=== PATIENT | male | born 1940 | race Caucasian/White ===

== ENCOUNTER 2020-01-22 15:02 | Observation (INO) ==
[2020-01-22] MEDS ORDERED: DOCUSATE SODIUM 100 MG CAPSULE PO PRN (15:08)
[2020-01-22] MEDS ORDERED: ALBUTEROL/IPRATROPIUM 3 ML NEB RESP TX PRN (15:08)
[2020-01-22] MEDS ORDERED: POTASSIUM CHLORIDE 20 MEQ TABLET PO PRN (15:08)
[2020-01-22] MEDS ORDERED: PROMETHAZINE 25 MG TABLET PO PRN (15:08)
[2020-01-22] MEDS ORDERED: guaiFENesin/DM ER 600-30 MG TABLET PO PRN (15:08)
[2020-01-22] MEDS ORDERED: NICOTINE 21 MG/24 HR PATCH TRANSDERM PRN (15:08)
[2020-01-22] MEDS ORDERED: traZODone 50 MG TABLET PO PRN (15:08)
[2020-01-22] MEDS ORDERED: hydrALAZINE 20 MG/1 ML VIAL IV PRN (15:08)
[2020-01-22] MEDS ORDERED: SIMETHICONE CHEW 125 MG TABLET PO PRN (15:08)
[2020-01-22] MEDS ORDERED: MAGNESIUM SULF RIDER 4 GM in PREMIX 1 EACH IV PRN (15:08)
[2020-01-22] MEDS ORDERED: diphenhydrAMINE CAP 25 MG CAPSULE PO PRN (15:08)
[2020-01-22] MEDS ORDERED: BISACODYL 5 MG TABLET PO PRN (15:08)
[2020-01-22] MEDS ORDERED: ALUMINUM/MAGNES/SIMETH MAX STR 30 ML UDCUP PO PRN (15:08)
[2020-01-22] MEDS ORDERED: ACETAMINOPHEN 325 MG TABLET PO PRN (15:08)
[2020-01-22] MEDS ORDERED: ONDANSETRON 4 MG/2 ML VIAL IV PRN (15:08)
[2020-01-22] MEDS ORDERED: MAGNESIUM SULF RIDER 2 GM in PREMIX 1 EACH IV PRN (15:08)
[2020-01-22 15:56] LABS: Basophils % 0.2 % (0.0-0.8); Eosinophils % 0.3 % (0.00-10.9); Hematocrit 48.1 VOL% (42.0-52.0); Immature Granulocytes % 0.4 %; Immature Granulocytes Absolute 0.05 #; Lymphocytes # 1.9 10*3/uL (1.4-4.0); Lymphocytes % 15.6 % (21.2-54.2); Mean Corpuscular HGB Conc 31.2 GM/DL (32-36); Mean Corpuscular Volume 90.1 FL (87-102); Mean Platelet Volume 9.2 FL (9.6-12.0); Monocytes % 8.2 % (1.7-12.7); Neutrophils % 75.3 % (38.7-73.9); Platelet Count 212 T/CUMM (130-400); Red Blood Count 5.34 MC/CUMM (3.8-5.5); Red Cell Distribution Width 13.5 % (9.3-17.3); White Blood Count 12.3 T/CUMM (4-12)
[2020-01-22] MEDS: SODIUM CHLORIDE 0.9% 1,000 ML IV SCH (16:00)
[2020-01-22] MEDS: ENOXAPARIN 80 MG/0.8 ML SYRINGE SUBCUT SCH (16:02)
[2020-01-22] MEDS: dilTIAZem Drip 125 MG/125 ML PREMIX IV SCH (16:02)
[2020-01-22 16:20] LABS: Albumin 3.3 G/DL (3.4-5.0); Bilirubin,Total 0.8 MG/DL (0.2-1.0); Calcium 9.3 MG/DL (8.5-10.1); Osmolality,Calculated 275.7 MOS/KG (273-304); Risk Ratio 3.29; Total Protein 6.6 G/DL (6.4-8.3)
[2020-01-22 19:10] LABS: Apearance,Urine CLEAR (Clear); Bilirubin,Urine Negative (Negative); Blood, Urine Negative (Negative); Glucose,Urine (UA) Negative (Negative); Ketones,Urine Negative (Negative); Mucus,Urine Occasional /LPF (Occasional); Nitrite,Urine Negative (Negative); Protein,Urine Negative; RBC,Urine 2 /HPF (0-4); Urine Color Yellow (Yellow); Urine Specific Gravity 1.012 (1.001-1.035); Urine Urobilinogen < 2.0 EU/DL (0.2-1.0); WBC,Urine 1 /HPF (0-6)
[2020-01-22] MEDS ORDERED: ATORVASTATIN 40 MG TABLET PO SCH (21:00)
[2020-01-22] MEDS: GABAPENTIN 300 MG CAPSULE PO SCH (21:21)
[2020-01-22] MEDS: ZALEPLON 5 MG CAPSULE PO PRN ×2 (21:25→22:25)
[2020-01-23] MEDS: ENOXAPARIN 80 MG/0.8 ML SYRINGE SUBCUT SCH (05:16)
[2020-01-23] MEDS: dilTIAZem Drip 125 MG/125 ML PREMIX IV SCH (05:18)
[2020-01-23] MEDS: SODIUM CHLORIDE 0.9% 1,000 ML IV SCH (05:19)
[2020-01-23 05:35] LABS: Basophils # 0.1 10*3/uL (0.0-0.2); Basophils % 0.3 % (0.0-0.8); Eosinophils # 0.1 10*3/uL (0.0-0.87); Eosinophils % 0.3 % (0.00-10.9); Hematocrit 44.6 VOL% (42.0-52.0); Hemoglobin 14.3 GM/DL (14.0-18.0); Immature Granulocytes % 0.5 %; Immature Granulocytes Absolute 0.07 #; Lymphocytes # 1.9 10*3/uL (1.4-4.0); Lymphocytes % 13.3 % (21.2-54.2); Mean Corpuscular HGB Conc 32.1 GM/DL (32-36); Mean Corpuscular Volume 88.7 FL (87-102); Mean Platelet Volume 9.6 FL (9.6-12.0); Monocytes % 9.4 % (1.7-12.7); Neutrophils % 76.2 % (38.7-73.9); Platelet Count 224 T/CUMM (130-400); Red Blood Count 5.03 MC/CUMM (3.8-5.5); Red Cell Distribution Width 13.6 % (9.3-17.3); White Blood Count 14.6 T/CUMM (4-12)
[2020-01-23 06:20] LABS: Blood Urea Nitrogen 10 MG/DL (7-18); Calcium 8.8 MG/DL (8.5-10.1); Estimated Glom Filtration Rate 99 ML/MIN; Glucose 103 MG/DL (74-106); Osmolality,Calculated 273.7 MOS/KG (273-304); Troponin I < 0.015 NG/ML (0.00-0.045)
[2020-01-23] MEDS: GABAPENTIN 300 MG CAPSULE PO SCH (08:53)
[2020-01-23] MEDS ORDERED: ASPIRIN EC 81 MG TABLET PO SCH (09:00)
[2020-01-23] MEDS ORDERED: FENOFIBRATE 145 MG TABLET PO SCH (09:00)
[2020-01-23] MEDS ORDERED: PANTOPRAZOLE 40 MG TABLET PO SCH (09:00)
[2020-01-23] MEDS ORDERED: METOPROLOL TARTRATE 25 MG TABLET PO SCH (09:06)
[2020-01-23] MEDS ORDERED: APIXABAN 5 MG TABLET PO SCH (09:12)
[2020-01-23] MEDS ORDERED: LEVOFLOXACIN 500 MG TABLET PO SCH (09:30)
[2020-01-23 12:10] VITALS: BP 131/79
== END 2020-01-23 12:45 | disposition left against medical advice (07) ==
LOC: N.TELES → PREINTOOBSV 15:27
PROVIDERS: ADMIT Internal Medicine Cardiovascular Disease; ATTEND Internal Medicine Cardiovascular Disease

== ENCOUNTER 2020-02-25 07:02 | Observation (INO) ==
[~2020-02-25 07:02] MED LIST: ASPIRIN 325 MG TABLET PO ONE; DIAZEPAM 5 MG TABLET PO ONE; MAGNESIUM SULF RIDER 2 GM in PREMIX 1 EACH IV PRN; POTASSIUM CHLORIDE RIDER 10 MEQ in PREMIX 1 EACH IV PRN; SODIUM CHLORIDE 0.9% 1,000 ML IV SCH; diphenhydrAMINE CAP 25 MG CAPSULE PO ONE
[2020-02-25] MEDS ORDERED: DIAZEPAM 5 MG TABLET ONE (07:47)
[2020-02-25] MEDS ORDERED: diphenhydrAMINE CAP 25 MG CAPSULE ONE (07:47)
[2020-02-25] MEDS ORDERED: ASPIRIN 325 MG TABLET ONE (07:47)
[2020-02-25] MEDS ORDERED: HEPARIN/NACL 0.9% 2 UNITS/ML 1,000 ML IV ONE (09:54)
[2020-02-25] MEDS ORDERED: LIDOCAINE 1% 20 ML VIAL ONE (09:54)
[2020-02-25] MEDS ORDERED: HEPARIN/NACL 0.9% 2 UNITS/ML 500 ML IV ONE (09:55)
[2020-02-25] MEDS ORDERED: fentaNYL 100 MCG/2 ML VIAL ONE (09:56)
[2020-02-25] MEDS ORDERED: VERAPAMIL 5 MG/2 ML VIAL ONE (09:56)
[2020-02-25] MEDS ORDERED: MIDAZOLAM 2 MG/2 ML VIAL ONE (10:02)
[2020-02-25] MEDS ORDERED: METOPROLOL TARTRATE 5 MG/5 ML VIAL IV ONE ×3 (10:24→11:28)
[2020-02-25] MEDS ORDERED: dilTIAZem Drip 125 MG/125 ML PREMIX IV SCH (12:30)
[2020-02-25] MEDS ORDERED: MAGNESIUM SULF RIDER 4 GM in PREMIX 1 EACH IV PRN (12:33)
[2020-02-25] MEDS ORDERED: MAGNESIUM SULF RIDER 2 GM in PREMIX 1 EACH IV PRN (12:33)
[2020-02-25] MEDS ORDERED: ZALEPLON 5 MG CAPSULE PO PRN (12:34)
[2020-02-25] MEDS ORDERED: CALCIUM CARBONATE CHEW 500 MG TABLET PO PRN (12:34)
[2020-02-25] MEDS ORDERED: ACETAMINOPHEN 325 MG TABLET PO PRN (12:34)
[2020-02-25] MEDS ORDERED: MORPHINE 4 MG/1 ML VIAL IV PRN (12:34)
[2020-02-25] MEDS ORDERED: ONDANSETRON 4 MG/2 ML VIAL IV PRN (12:34)
[2020-02-25] MEDS ORDERED: LACTULOSE 20 GM/30 ML UDCUP PO PRN (12:34)
[2020-02-25] MEDS ORDERED: hydrALAZINE 20 MG/1 ML VIAL IV PRN (12:34)
[2020-02-25] MEDS ORDERED: SIMETHICONE CHEW 125 MG TABLET PO PRN (12:34)
[2020-02-25] MEDS ORDERED: BISACODYL 5 MG TABLET PO PRN (12:34)
[2020-02-25] MEDS ORDERED: ALUMINUM/MAGNES/SIMETH MAX STR 30 ML UDCUP PO PRN (12:34)
[2020-02-25] MEDS ORDERED: POTASSIUM CHLORIDE 20 MEQ TABLET PO PRN (12:34)
[2020-02-25] MEDS: ENOXAPARIN 80 MG/0.8 ML SYRINGE SUBCUT SCH (13:20)
[2020-02-25 13:36] LABS: Troponin I 0.095 NG/ML (0.00-0.045)
[2020-02-25 16:53] LABS: Troponin I 0.105 NG/ML (0.00-0.045)
[2020-02-26] MEDS: ENOXAPARIN 80 MG/0.8 ML SYRINGE SUBCUT SCH ×2 (01:04→12:01)
[2020-02-26 04:55] LABS: Basophils % 0.2 % (0.0-0.8); Eosinophils # 0.1 10*3/uL (0.0-0.87); Eosinophils % 0.3 % (0.00-10.9); Hematocrit 49.7 VOL% (42.0-52.0); Hemoglobin 15.6 GM/DL (14.0-18.0); Immature Granulocytes % 0.5 %; Immature Granulocytes Absolute 0.08 #; Lymphocytes # 3.3 10*3/uL (1.4-4.0); Lymphocytes % 19.8 % (21.2-54.2); Mean Corpuscular HGB Conc 31.4 GM/DL (32-36); Mean Corpuscular Volume 89.1 FL (87-102); Mean Platelet Volume 9.4 FL (9.6-12.0); Monocytes % 7.8 % (1.7-12.7); Neutrophils % 71.4 % (38.7-73.9); Platelet Count 424 T/CUMM (130-400); Red Blood Count 5.58 MC/CUMM (3.8-5.5); Red Cell Distribution Width 13.8 % (9.3-17.3); White Blood Count 16.5 T/CUMM (4-12)
[2020-02-26 05:51] LABS: Blood Urea Nitrogen 9 MG/DL (7-18); Calcium 9.1 MG/DL (8.5-10.1); Estimated Glom Filtration Rate 103 ML/MIN; Glucose 120 MG/DL (74-106); Osmolality,Calculated 276.5 MOS/KG (273-304); Thyroid Stimulating Hormone 0.744 uIU/ml (0.358-3.74)
[2020-02-26 05:54] LABS: Troponin I 0.058 NG/ML (0.00-0.045)
[2020-02-26] MEDS: PANTOPRAZOLE 40 MG TABLET PO SCH (08:16)
[2020-02-26] MEDS ORDERED: GABAPENTIN 300 MG CAPSULE PO PRN (09:09)
[2020-02-26] MEDS ORDERED: NITROGLYCERIN SL 0.4 MG TABLET SL ONE (09:25)
[2020-02-26] MEDS ORDERED: MAGNESIUM SULF RIDER 2 GM in PREMIX 1 EACH IV PRN (09:26)
[2020-02-26] MEDS ORDERED: POTASSIUM CHLORIDE RIDER 10 MEQ in PREMIX 1 EACH IV PRN (09:26)
[2020-02-26] MEDS ORDERED: DILTIAZEM CD 120 MG CAPSULE PO SCH (09:30)
[2020-02-26] MEDS: ASPIRIN EC 81 MG TABLET PO SCH (10:36)
[2020-02-26] MEDS: METOPROLOL TARTRATE 50 MG TABLET PO SCH ×2 (10:36→20:48)
[2020-02-26] MEDS: AMIODARONE 200 MG TABLET PO SCH ×2 (12:48→20:48)
[2020-02-26 13:15] LABS: Apearance,Urine CLEAR (Clear); Bilirubin,Urine Negative (Negative); Blood, Urine Large mg/dL (Negative); Glucose,Urine (UA) Negative (Negative); Ketones,Urine Negative (Negative); Mucus,Urine Occasional /LPF (Occasional); Nitrite,Urine Negative (Negative); Protein,Urine Negative; RBC,Urine 124 /HPF (0-4); Urine Color Amber (Yellow); Urine Specific Gravity 1.017 (1.001-1.035); Urine Urobilinogen < 2.0 EU/DL (0.2-1.0); WBC,Urine 2 /HPF (0-6)
[2020-02-26] MEDS ORDERED: ATORVASTATIN 40 MG TABLET PO SCH (21:00)
[2020-02-27] MEDS: ENOXAPARIN 80 MG/0.8 ML SYRINGE SUBCUT SCH (00:43)
[2020-02-27 06:22] LABS: Basophils % 0.3 % (0.0-0.8); Eosinophils # 0.1 10*3/uL (0.0-0.87); Hematocrit 51.8 VOL% (42.0-52.0); Immature Granulocytes % 0.4 %; Immature Granulocytes Absolute 0.05 #; Lymphocytes # 4.1 10*3/uL (1.4-4.0); Lymphocytes % 33.8 % (21.2-54.2); Mean Corpuscular HGB Conc 30.9 GM/DL (32-36); Mean Platelet Volume 9.8 FL (9.6-12.0); Monocytes % 7.8 % (1.7-12.7); Neutrophils % 56.7 % (38.7-73.9); Platelet Count 415 T/CUMM (130-400); Red Blood Count 5.63 MC/CUMM (3.8-5.5)
[2020-02-27 06:25] LABS: Calcium 9.3 MG/DL (8.5-10.1); Osmolality,Calculated 275.5 MOS/KG (273-304)
[2020-02-27 06:31] LABS: Risk Ratio 2.83
[2020-02-27] MEDS: AMIODARONE 200 MG TABLET PO SCH ×2 (09:02→20:28)
[2020-02-27] MEDS: ASPIRIN EC 81 MG TABLET PO SCH (09:02)
[2020-02-27] MEDS: METOPROLOL TARTRATE 50 MG TABLET PO SCH ×2 (09:02→20:28)
[2020-02-27] MEDS: PANTOPRAZOLE 40 MG TABLET PO SCH (09:03)
[2020-02-27] MEDS ORDERED: DIAZEPAM 5 MG TABLET PO ONE (09:26)
[2020-02-27] MEDS ORDERED: diphenhydrAMINE CAP 25 MG CAPSULE PO ONE (09:26)
[2020-02-27] MEDS: SODIUM CHLORIDE 0.45% 1,000 ML IV SCH ×2 (10:25→21:18)
[2020-02-27] MEDS ORDERED: LIDOCAINE 1% 20 ML VIAL ONE (11:46)
[2020-02-27] MEDS ORDERED: HEPARIN/NACL 0.9% 2 UNITS/ML 1,000 ML IV ONE (11:46)
[2020-02-27] MEDS ORDERED: HEPARIN/NACL 0.9% 2 UNITS/ML 500 ML IV ONE ×2 (11:49→14:28)
[2020-02-27] MEDS ORDERED: fentaNYL 100 MCG/2 ML VIAL ONE (13:18)
[2020-02-27] MEDS ORDERED: MIDAZOLAM 2 MG/2 ML VIAL ONE (13:18)
[2020-02-27] MEDS ORDERED: CLOPIDOGREL 300 MG TABLET ONE (14:33)
[2020-02-27] MEDS ORDERED: HEPARIN 5,000 UNIT/1 ML VIAL ONE (14:33)
[2020-02-27] MEDS ORDERED: NITROGLYCERIN DRIP 50 MG/250 ML BOTTLE IV ONE (14:35)
[2020-02-27] MEDS ORDERED: SODIUM CHLORIDE 0.9% 1,000 ML IV SCH (15:30)
[2020-02-27] MEDS ORDERED: ATORVASTATIN 40 MG TABLET PO SCH (21:00)
[2020-02-28 06:18] LABS: Basophils % 0.2 % (0.0-0.8); Eosinophils % 0.2 % (0.00-10.9); Hematocrit 44.8 VOL% (42.0-52.0); Hemoglobin 14.2 GM/DL (14.0-18.0); Immature Granulocytes % 0.6 %; Immature Granulocytes Absolute 0.07 #; Lymphocytes # 1.5 10*3/uL (1.4-4.0); Lymphocytes % 11.7 % (21.2-54.2); Mean Corpuscular HGB Conc 31.7 GM/DL (32-36); Mean Corpuscular Volume 89.8 FL (87-102); Mean Platelet Volume 9.2 FL (9.6-12.0); Monocytes % 9.1 % (1.7-12.7); Neutrophils % 78.2 % (38.7-73.9); Platelet Count 310 T/CUMM (130-400); Red Blood Count 4.99 MC/CUMM (3.8-5.5); Red Cell Distribution Width 13.8 % (9.3-17.3); White Blood Count 12.7 T/CUMM (4-12)
[2020-02-28 06:47] LABS: Calcium 8.6 MG/DL (8.5-10.1); Osmolality,Calculated 270.8 MOS/KG (273-304)
[2020-02-28 06:48] LABS: Calcium 8.8 MG/DL (8.5-10.1)
[2020-02-28 08:15] VITALS: BP 137/74
[2020-02-28] MEDS: METOPROLOL TARTRATE 50 MG TABLET PO SCH (08:36)
[2020-02-28] MEDS: PANTOPRAZOLE 40 MG TABLET PO SCH (08:39)
[2020-02-28] MEDS: AMIODARONE 200 MG TABLET PO SCH (08:39)
[2020-02-28] MEDS: ASPIRIN EC 81 MG TABLET PO SCH (08:39)
[2020-02-28] MEDS: SODIUM CHLORIDE 0.45% 1,000 ML IV SCH (08:40)
[2020-02-28] MEDS ORDERED: APIXABAN 5 MG TABLET PO SCH (09:00)
[2020-02-28] MEDS ORDERED: CLOPIDOGREL 75 MG TABLET PO SCH (09:00)
== END 2020-02-28 10:30 | disposition home or self-care (01) ==
LOC: N.CL 07:02 → N.TELEN 07:02 → N.CL 07:03 → N.TELEN 12:37
PROVIDERS: ADMIT Internal Medicine Cardiovascular Disease; ATTEND Internal Medicine Cardiovascular Disease